=== PATIENT | male | born 1940 | race Caucasian/White ===

== ENCOUNTER 2025-06-08 15:08 | Outpatient (CLI) | payer MEDICARE, SELFPAY ==
--- NOTE | ~2025-06-08 | MR_ITS ---
EXAM: MR lumbar spine wo lindsay - 06/08/2025 15:30 CDT History: 84 years old Male with lumbago TECHNIQUE: MRI of the lumbar spine were acquired utilizing standard sequences, without intravenous c ontrast. COMPARISON: None available. FINDINGS: NUMBERING: Last fully formed disc space is designated L5-S1. BONES: Vertebral body height is preserved without significant compression deformity. 30 degrees of dextroscoliotic curvature is identified within the lumbar spine. Grade 1 retrolisthesis of L2 onto L3 and L3 onto L4 is identified. Increased T2 signal intensity is identified within the inferior endplate of L2, the superior and infe rior endplates of L3, as well as within the anterior superior endplate and the posterior inferior end plate of L5. Remaining bone marrow signal is otherwise unremarkable. INTERVERTEBRAL DISCS: Multilevel disc desiccation. SOFT TISSUES: Fatty atrophy of the paraspinous musculature, right greater than left. SPINAL CORD: Normal conus. Conus terminates at L1. T12-L1: No significant disc bulge. Mild facet arthropathy and ligamentum flavum hypertrophy. No signi ficant spinal canal stenosis or neural foraminal narrowing. No significant neural foraminal narrowing . Abutment of the left traversing nerve root. L1-L2: Mild diffuse disc bulge. Mild facet arthropathy and ligamentum flavum hypertrophy. No signific ant spinal canal stenosis or neural foraminal narrowing. No significant neural foraminal narrowing. N o significant stenosis of the lateral recess. L2-L3: Moderate diffuse disc bulge. Mild facet arthropathy and ligamentum flavum hypertrophy. Mild sp inal canal stenosis. Mild right, moderate left neural foraminal narrowing Compression of traversing b ilateral nerve root(s). L3-L4: Moderate diffuse disc bulge. Moderate facet arthropathy and ligamentum flavum hypertrophy. Mil d spinal canal stenosis. Severe right neural foraminal narrowing. Moderate left neural foraminal narr owing. Compression of traversing bilateral nerve root(s). L4-L5: Asymmetric disc bulge. Moderate facet arthropathy and ligamentum flavum hypertrophy. Mild spin al canal stenosis. Severe right neural foraminal narrowing. Mild left neural foraminal narrowing. Com pression of traversing right sided nerve root(s). L5-S1: Moderate diffuse disc bulge. Moderate facet arthropathy and ligamentum flavum hypertrophy. Mil d spinal canal stenosis. Mild left, moderate right neural foraminal narrowing Compression of traversi ng right sided nerve root(s). IMPRESSION: Multilevel degenerative disc disease, most prominent within the lower lumbar spine, as detailed above . No acute or subacute fractures detected. Reviewed, dictated and finalized at location A. IMPRESSION: Multilevel degenerative disc disease, most prominent within the lower lumbar sp ine, as detailed above. No acute or subacute fractures detected.
== END 2025-06-08 15:09 | disposition home or self-care (01) ==
PROVIDERS: PCP Internal Medicine; Visit Provider Nurse Practitioner Family
DX: M51.369 Other intervertebral disc degeneration, lumbar region without mention of lumbar back pain or lower extremity pain (principal)
CPT/HCPCS: 72148

== ENCOUNTER 2025-09-01 12:17 | Outpatient (CLI) | payer MEDICARE, SELFPAY ==
--- NOTE | ~2025-09-01 | MR_ITS ---
EXAMINATION: MR hip RT wo con DATE: 09/01/2025 13:05 INDICATION: Lumbar radiculopathy with 6-12 months of posterior and lateral right hip pain and right leg weakness TECHNIQUE: Magnetic resonance imaging (MRI) of the right hip was performed without intravenous contrast. Sequences included full-field axial PD-weighted FS FSE and T1-weighted FSE, coronal of the pelvis with PD-weighted FS FSE, T2- weighted FSE and T1-weighted FSE, small field of view of the right hip with axial PD-weighted FS FSE, sagittal PD-weighted FS FSE, coronal PD-weighted FS FSE and coronal T2 weighted FSE. Additional radial T1-weighted FGR oriented orthogonal to the acetabular rim were obtained for evaluation of the labrum. COMPARISON: None FINDINGS: Bones/labrum/cartilage: Mild lumbar dextrocurvature with severe spondylosis. T1 and T2 hyperintense fibrofatty and fibrovascular degenerative endplate changes. Alignment is otherwise normal. No fracture, avascular necrosis or pathologic marrow replacing process. Degenerative tearing of the anterosuperior and posterior right acetabular labrum. Mild right hip osteoarthritis with mild partial- thickness cartilage loss with prominent anterosuperiorly and posterior inferiorly where there is mild underlying subarticular cystlike change along the anterosuperior and posterior inferior rim of the right acetabulum. Similar mild osteoarthritis and tearing of the anterosuperior labrum also seen on more limited evaluation of the left hip on the larger [id number] images of the pelvis. There is also mild osteoarthritis at the bilateral sacroiliac joints. Fluid: Symmetric physiologic amount of fluid within both hip joints. Fluid collections overlying the bilateral greater trochanters, moderate sized on the right and small on the left, consistent with trochanteric bursitis. There are also small fluid collections overlying the bilateral ischial tuberosities consistent with bilateral ischial bursitis. Soft tissues: Likely chronic complete avulsion of the right greater trochanteric insertion of the right gluteus medius tendon with lax appearance of the proximally retracted tendon with the distal tear margin approximately 4-5 cm from the greater trochanter footplate and secondary severe fatty atrophy of the muscle belly. There is partial tear of the distal left gluteus medius tendon with retraction of the myotendinous junction to 6 cm above level of the trochanteric footplate. There are also high-grade partial if not complete chronic tears of the distal bilateral gluteus minimus tendons with severe secondary fatty atrophy. Bilateral iliopsoas tendons are normal. Mild tendinopathy and partial avulsed ischial tub erosity origins of the conjoined biceps femoris and semitendinosus tendons. Prostatomegaly measuring 5.0 x 3.5 cm. There is a 3.6 x 1.9 x 2.4 cm T2 hyperintense mass at the entrance to the left inguinal canal suggestive of a plug from prior left inguinal hernia repair. Correlate with surgical history. Limited evaluation of visceral organs of the pelvis is otherwise unremarkable. No pathologically enlarged pelvic/inguinal lymphadenopathy. IMPRESSION: 1. 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 2. Severe lumbar spondylosis. 3. Bilateral trochanteric bursitis with chronic complete tear and proximal retraction of the right gluteus medias tendon with secondary severe fatty atrophy of the muscle belly. Partial thickness tear of the left gluteus medius tendon. 4. High-grade partial if not complete tears of the bilateral gluteus minimus tendons with severe secondary fatty muscular atrophy. 5. Bilateral ischial bursitis with partial thickness tears at the conjoined ischial tuberosity origins of the bilateral biceps femoris and semitendinosus tendons. 6. 3.6 x 1.9 x 2.4 cm T2 hyperintense mass in the entrance to left inguinal canal suggestive of epiploic for inguinal hernia repair. Alternatively this could represent an enlarged left external iliac chain lymph node. Correlate with surgical history. Reviewed, dictated and finalized at location A. IMPRESSION: 1. 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 2. Severe lumbar spondylosis. 3. Bilateral trochanteric bursitis with chronic complete tear and proximal retr action of the right gluteus medias tendon with secondary severe fatty atrophy o f the muscle belly. Partial thickness tear of the left gluteus medius tendon. 4. High-grade partial if not complete tears of the bilateral gluteus minimus te ndons with severe secondary fatty muscular atrophy. 5. Bilateral ischial bursitis with partial thickness tears at the conjoined isc hial tuberosity origins of the bilateral biceps femoris and semitendinosus tend ons. 6. 3.6 x 1.9 x 2.4 cm T2 hyperintense mass in the entrance to left inguinal can al suggestive of epiploic for inguinal hernia repair. Alternatively this could represent an enlarged left external iliac chain lymph node. Correlate with surg ical history.
== END 2025-09-01 12:18 | disposition home or self-care (01) ==
PROVIDERS: PCP Internal Medicine; Visit Provider Nurse Practitioner Family
DX: S73.192A Other sprain of left hip, initial encounter (principal); S73.191A Other sprain of right hip, initial encounter; M47.816 Spondylosis without myelopathy or radiculopathy, lumbar region; M70.62 Trochanteric bursitis, left hip; M70.61 Trochanteric bursitis, right hip; S76.092A Other specified injury of muscle, fascia and tendon of left hip, initial encounter; S76.011A Strain of muscle, fascia and tendon of right hip, initial encounter; M62.559 Muscle wasting and atrophy, not elsewhere classified, unspecified thigh; M62.551 Muscle wasting and atrophy, not elsewhere classified, right thigh; M62.552 Muscle wasting and atrophy, not elsewhere classified, left thigh; M70.71 Other bursitis of hip, right hip; M70.72 Other bursitis of hip, left hip; R19.09 Other intra-abdominal and pelvic swelling, mass and lump
CPT/HCPCS: 73721